=== PATIENT | male | born 1965 | race Caucasian/White ===

== ENCOUNTER 2021-12-06 13:00 | Emergency (ER) | payer MEDICAID | END 2021-12-06 15:14 | disposition home or self-care (01) | LOC: JD.ED 13:00 | DX: R05.9 Cough, unspecified (principal) | CPT/HCPCS: 36415; 71046; 71046-26; 80053; 83880; 85025; 85379; 99283-25 ==

== ENCOUNTER 2022-12-10 15:05 | Emergency (ER) | payer MEDICAID ==
[2022-12-10] MEDS ORDERED: Sodium Chloride 0.9% 10 ML Syringe FLUSH PRN (15:42)
[2022-12-10] MEDS ORDERED: Sodium Chloride 0.9% 1,000 ML IV STA (15:42)
[2022-12-10] MEDS ORDERED: Ondansetron 4 MG/2 ML SDV IVPUSH ONE (15:42)
[2022-12-10] MEDS ORDERED: Famotidine 20 MG/2 ML SDV IVPUSH ONE (17:25)
== END 2022-12-10 18:13 | disposition home or self-care (01) ==
LOC: JD.ED 15:05
DX: K52.9 Noninfective gastroenteritis and colitis, unspecified (principal); Z88.0 Allergy status to penicillin
CPT/HCPCS: 36415; 80053; 83690; 83735; 85025; 96361; 96374; 96375; 99284; J2405; J3490; J7030; 99283

== ENCOUNTER 2024-08-11 16:22 | Emergency (ER) | payer MEDICAID ==
[2024-08-11] MEDS: Diphtheria,Pertussis(Acell),Tetanus Vaccine 0.5 ML Syringe IM ONE (17:55)
== END 2024-08-11 18:18 | disposition home or self-care (01) ==
LOC: JD.ED 16:22
DX: S61.213A Laceration without foreign body of left middle finger without damage to nail, initial encounter (principal); Z79.899 Other long term (current) drug therapy; Z88.0 Allergy status to penicillin; Z23 Encounter for immunization; W26.0XXA Contact with knife, initial encounter
CPT/HCPCS: 90471; 90715; 99282-25

== ENCOUNTER 2025-02-13 14:17 | Emergency (ER) | payer MEDICAID ==
[2025-02-13 15:57] LABS: BASOPHILS PERCENT AUTO 0.2 % (0.0-1.0); EOSINOPHILS ABSOLUTE AUTO 0.1 K/mm3 (0.0-0.4); EOSINOPHILS PERCENT AUTO 2.6 % (0.0-6.0); HEMATOCRIT 49.9 % (42.0-52.0); HEMOGLOBIN 17.3 gm/dl (14.0-18.0); IMMATURE GRAN ABSOLUTE AUTO 0.01 K/mm3 (0.00-0.05); IMMATURE GRAN PERCENT AUTO 0.2 % (0.0-0.4); LYMPHOCYTES ABSOLUTE AUTO 1.2 K/mm3 (1.0-4.8); LYMPHOCYTES PERCENT AUTO 24.2 % (24.0-44.0); MEAN CORPUSCULAR HEMOGLOBIN 30.9 pg (28.0-32.0); MEAN CORPUSCULAR HGB CONC 34.7 g/dl (32.0-36.0); MEAN CORPUSCULAR VOLUME 89.3 fl (83.0-99.0); MEAN PLATELET VOLUME 11.8 fl (9.4-12.4); MONOCYTES PERCENT AUTO 19.8 % (0.0-8.0); NEUTROPHILS ABSOLUTE AUTO 2.6 K/mm3 (1.8-7.7); PLATELET COUNT,PLT 141 K/mm3 (150-400); RED BLOOD CELL COUNT 5.59 M/mm3 (4.52-5.90); WHITE BLOOD CELL COUNT,WBC 4.95 K/mm3 (3.9-11.3)
[2025-02-13 16:23] LABS: A/G RATIO 1.2 (1-2); ALBUMIN 3.9 g/dl (3.4-5.0); BILIRUBIN TOTAL 0.6 mg/dL (0.2-1.0); CALCIUM 9.6 mg/dL (8.5-10.1); CREATININE 1.1 mg/dL (0.7-1.3); EST CRCL DRUG DOSING (CG) 75.58 mL/min; PROTEIN TOTAL,TP 7.2 g/dl (6.4-8.2)
== END 2025-02-13 17:27 | disposition home or self-care (01) ==
LOC: JD.ED 14:17
DX: L51.9 Erythema multiforme, unspecified (principal); J06.9 Acute upper respiratory infection, unspecified; Z88.0 Allergy status to penicillin; Z79.899 Other long term (current) drug therapy; Z87.891 Personal history of nicotine dependence
CPT/HCPCS: 36415; 71045; 71045-26; 80053; 85025; 87428-QW; 99283

== ENCOUNTER 2025-04-04 21:51 | Emergency (ER) | payer MEDICAID ==
[2025-04-04] MEDS: Clindamycin HCl 150 MG Cap PO ONE (22:24)
[2025-04-04] MEDS: Naproxen 500 MG Tab PO ONE (22:25)
== END 2025-04-04 22:29 | disposition home or self-care (01) ==
LOC: JD.ED 21:51
DX: K04.7 Periapical abscess without sinus (principal); Z86.16 Personal history of COVID-19; Z79.899 Other long term (current) drug therapy; Z88.0 Allergy status to penicillin
CPT/HCPCS: 99283; A9270